=== PATIENT | male | born 1970 | race Caucasian/White ===

== ENCOUNTER 2017-03-05 20:04 | Emergency (ER) | payer BC ==
[~2017-03-05] VITALS: Ht 165.1 cm; Wt 80.7 kg
[2017-03-05 20:16] VITALS: BP_SYST 121
--- NOTE | 2017-03-05 20:31 | NUR ---
Patient to ER bed 07 to gown for evaluation. Side rails up.
--- NOTE | 2017-03-05 20:33 | NUR ---
Patient states having pain to right side of oral cavity since last night. [place] coloration noted, swelling noted to right side of oral cavity. Patient states pain scale 10/10, patient states he is unable to bite without pain being present. Patient denies any other complaints.
--- NOTE | 2017-03-05 21:05 | NUR ---
ER Dr. Vanegas at bedside examining patient.
[2017-03-05] MEDS ORDERED: OXYCODONE/ACETAMINOPHEN 5-325 TABLET PO ONE (21:30)
[2017-03-05] MEDS ORDERED: BUPIVACAINE /PF 0.25% 30 ML VIAL INJ ONE (21:30)
[2017-03-05] MEDS ORDERED: ceFAZolin SODIUM 1 GM VIAL IM ONE (21:30)
--- NOTE | 2017-03-05 21:50 | NUR ---
patient's wristband did not scan. Correct patient and date of verified at bedside prior to medication administration. Patient's allergies verified at bedside prior to medication administration.
[2017-03-05] MEDS ORDERED: LIDOCAINE 1%, 20 ML MDV 20 ML ONE (21:52)
[2017-03-05 22:21] VITALS: BP_SYST 124
--- NOTE | 2017-03-05 22:21 | NUR ---
No adverse effects to medications noted.
--- NOTE | 2017-03-05 22:21 | NUR ---
Patient given written and verbal discharge instructions and verbalizes understanding. ER MD discussed with patient the results and treatment provided. Patient in stable condition. ID arm band removed. Rx of percocet and augmentin given. Patient educated on pain management and to follow up with PMD. Pain Scale 0/10. Opportunity for questions provided and answered.
== END 2017-03-05 22:21 | disposition home or self-care (01) ==
LOC: EDBD 20:04 → SED 20:04
DX: K04.7 Periapical abscess without sinus (principal); K02.9 Dental caries, unspecified; R22.0 Localized swelling, mass and lump, head; M27.2 Inflammatory conditions of jaws
CPT/HCPCS: 64400; 99284; J0690; J2001; J3490